=== PATIENT | female | born 1990 | race Caucasian/White ===

== ENCOUNTER 2017-05-26 16:02 | Emergency (ER) | payer BC ==
[~2017-05-26] VITALS: Ht 162.6 cm; Wt 69.9 kg
--- NOTE | 2017-05-26 17:14 | NUR ---
DR CASTELAN AT THE BEDSIDE FOR EVAL AND EXAM.
--- NOTE | 2017-05-26 17:56 | NUR ---
Patient discharged to home in stable conditon. Written and verbal after care instructions given. Patient verbalizes understanding of instructions.
[2017-05-26 17:58] VITALS: BP 119/77
== END 2017-05-26 17:59 | disposition home or self-care (01) ==
LOC: ER 16:03
DX: O26.892 Other specified pregnancy related conditions, second trimester (principal); T78.09XA Anaphylactic reaction due to other food products, initial encounter; O99.282 Endocrine, nutritional and metabolic diseases complicating pregnancy, second trimester; Z3A.20 20 weeks gestation of pregnancy
CPT/HCPCS: A4663